=== PATIENT | male | born 1995 | race Hispanic/Latino ===

== ENCOUNTER 2022-06-14 01:37 | Emergency (ER) | payer OTHER, SELFPAY ==
[2022-06-14] MEDS ORDERED: HYDROcodone/Acetaminophen 10/325 mg Tablet ONE (01:53)
== END 2022-06-14 02:46 | disposition home or self-care (01) ==
LOC: BURERS 01:37
DX: S40.011A Contusion of right shoulder, initial encounter (principal); W22.8XXA Striking against or struck by other objects, initial encounter